=== PATIENT | male | born 1990 | race Two or more races ===

== ENCOUNTER 2021-12-05 00:18 | Emergency (ER) | payer SELFPAY ==
[2021-12-05 00:20] VITALS: O2SAT 99
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
[2021-12-05 00:36] VITALS: BP 119/67; PULSE 122; RESP 20; TEMP 36.6; O2SAT 99
[2021-12-05] MEDS: CEFAZOLIN 2 GM in 0.9 % SODIUM CHLORIDE Mini-bag 100 ML IVPB (00:45)
[2021-12-05] MEDS: ONDANSETRON 2 MG/ML inj 4 MG IVP (00:46)
--- NOTE | 2021-12-05 00:46 | PC.NURSE ---
unable to enter vaccine information: Adacel vaccine given 12/05/21 Lot: [id number] exp: [id number]
[2021-12-05 00:47] VITALS: BP 116/70; PULSE 119; RESP 20; TEMP 36.6; O2SAT 99; BMI 28.7
[2021-12-05 00:54] VITALS: BP 116/70; PULSE 119; RESP 20; TEMP 36.6
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
--- NOTE | 2021-12-05 04:17 | ED.NURSE ---
prior to transfer to [facility] [place], sterile saline soaked gauze applied loosely to wound per MD Gale request.
[2021-12-05 05:10] LABS: Hematocrit 47.7 % (37.0-53.0); Hemoglobin* 16.6 gm/dL (13.5-17.5); Lymphocytes Percent Auto 5.8 % (20-44); Mean Corpuscular HGB Conc 35 gm/dL (32-36); Mean Corpuscular Hemoglobin 33 pg (26-34); Mean Corpuscular Volume 95 fL (80-100); Neutrophils Percent Auto 88.8 % (42.0-72.0); Platelet Count* 351 K/uL (140-440); RDW Coefficient of Variation % 12.2 % (11.5-15.5); White Blood Count* 16.13 K/uL (4.50-11.00)
[2021-12-05 05:11] LABS: Basophils Percent Auto 0.3 % (0.0-3.0); Eosinophils Percent Auto 0.2 % (0.0-7.0); Immature Granulocytes Pct Auto 0.7 %; Monocytes Percent Auto 4.2 % (0.0-11.0); Slide Review Reflex No
[2021-12-05 05:13] LABS: Blood Urea Nitrogen* 10 mg/dL (5-24); Calcium* 9.3 mg/dL (8.4-10.6); Carbon Dioxide* 22 mmol/L (20-32); Chloride* 105 mmol/L (96-114); Creatinine* 0.9 mg/dL (0.5-1.5); Est. Creatinine Clearance* 123.92; Estimated Glomerular Filt Rate 118 ml/min; Glucose* 125 mg/dL (60-115); Potassium* 3.7 mmol/L (3.6-5.1); Sodium* 144 mmol/L (135-149)
== END 2021-12-05 00:54 | disposition home or self-care (01) ==
LOC: ED 00:35
PROVIDERS: Emergency Provider Family Medicine
DX: S11.91XA Laceration without foreign body of unspecified part of neck, initial encounter (principal); X99.1XXA Assault by knife, initial encounter
CPT/HCPCS: 36415; 70360; 71045; 80048; 80053; 82077; 85025; 94761; 96365; 96375; 99285; 99291; J0690; J2405

== ENCOUNTER 2021-12-05 00:43 | Outpatient (CLI) | payer SELFPAY | END 2021-12-05 00:44 | disposition home or self-care (01) | LOC: AMB 01-27 11:08 | PROVIDERS: Visit Provider Family Medicine | DX: S11.9 Open wound of unspecified part of neck (principal); X99 Assault by sharp object | CPT/HCPCS: A0425; A0426 ==